=== PATIENT | female | born 1990 | race Caucasian/White ===

== ENCOUNTER 2018-11-22 15:30 | Emergency (ER) | payer MEDICAID, OTHER | END 2018-11-22 16:43 | disposition home or self-care (01) | LOC: FTE 16:43 | DX: S62.102D Fracture of unspecified carpal bone, left wrist, subsequent encounter for fracture with routine healing (principal); W18.39XA Other fall on same level, initial encounter; Y92.9 Unspecified place or not applicable | CPT/HCPCS: 29125; 99283-25 ==